=== PATIENT | male | born 1985 | race Caucasian/White ===

== ENCOUNTER 2022-06-21 07:59 | Outpatient (CLI) | payer MEDICAID, SELFPAY ==
--- NOTE | 2022-06-21 08:15 | MR_ITS ---
[address] [address] Phone:?[phone] Fax:?[phone] Referring Physician Information: Lalita Christensen [id number] [facility] [address] Phone:?[phone] Fax:?[phone] Patient:?Daniel Monique D.O.B:?1985 Sex:?Male Phone:?[phone] [facility] MRN:?[id number] Exam Date:?06/21/2022 ? EXAM: MRI EXAMINATION OF THE LEFT ELBOW CLINICAL INFORMATION: Left elbow pain. Limited range of motion. Locking. Popping. Hyperextension injury. TECHNICAL INFORMATION: Axial sagittal PD and T2. Coronal T1 and STIR. Coronal PD and T2-weighted images acquired. INTERPRETATION: Bones, joint and osteochondral surfaces: There is a moderate elbow joint effusion. Series 3 image 21 as well as series 7 images 35 and 36 demonstrate 2 adjacent loose bodies within the olecranon fossa of the joint. The larger of these is measuring 4 mm. Series 4 image 11 demonstrates an additional 4 mm loose body just off the anterior aspect of the ulnohumeral joint. No evidence for an occult fracture or osseous contusion. There are changes of radiocapitellar joint osteoarthritis with broad full- thickness cartilage loss. Abnormal osseous irregularity and spurring spurring off the distal humerus into the coronoid fossa and olecranon fossa. There are mild changes of osseous irregularity and spurring involving the coronoid process and tip of the olecranon. No other abnormal marrow edema pattern identified. Tendons: The biceps, triceps and brachialis tendon insertions are all intact. The common flexor origin at the medial humeral epicondyle is intact. The common extensor origin at the lateral humeral epicondyle is intact without tear or significant tendinopathy. Ligaments: The ulnar collateral ligament is intact without evidence of acute sprain or tear. The radial collateral and lateral ulnar collateral ligaments appear grossly intact. Nerves: The ulnar nerve appears unremarkable coursing past the elbow and through the cubital tunnel. There is an unremarkable visualized course of the radial nerve as well as its superficial and deep branches. CONCLUSION: 1. 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 2. There is a moderate elbow joint effusion. 2 loose bodies within the olecranon fossa, the larger of which measures 4 mm. Additional 4 mm loose body just off the anterior aspect of the ulnohumeral joint. 3. No evidence for an occult fracture or osseous contusion. 4. Unremarkable and intact appearance of the tendons about the elbow. 5. Intact appearance of the elbow ligaments, specifically without acute injury. KES Electronically signed on 06/21/2022 10:52:00 AM by Anthony Vincent M.D.
== END 2022-06-21 08:00 | disposition home or self-care (01) ==
LOC: MRI 08:00
PROVIDERS: Visit Provider Physician Assistant
DX: M25.522 Pain in left elbow (principal); M19.022 Primary osteoarthritis, left elbow; M25.422 Effusion, left elbow
CPT/HCPCS: 73221